=== PATIENT | male | born 1985 | race African-American/Black ===

== ENCOUNTER 2024-07-23 17:18 | Emergency (ER) | payer SELFPAY ==
[~2024-07-23] VITALS: Ht 172.7 cm; Wt 70.0 kg
[2024-07-23 17:21] VITALS: TEMP 98.2; O2SAT 100
[2024-07-23] MEDS ORDERED: BO1 TP (22:08)
[2024-07-23] MEDS: TETANUS, DIPHTHERIA, PERTUSSIS VAC/PF 0.5ML (>10YR OLD) IM ONE (22:30)
[2024-07-23 22:31] VITALS: BP 114/83; PULSE 69; RESP 16; O2SAT 100
[2024-07-23] MEDS: LIDOCAINE HCL/PF 1% 10 MG/ML 5ML VIAL INFIL ONE (22:31)
[2024-07-23] MEDS: BACITRACIN ZINC OINT UDPKT TOP ONE (22:31)
== END 2024-07-23 22:33 | disposition home or self-care (01) ==
LOC: ER 17:18
DX: S61.101A Unspecified open wound of right thumb with damage to nail, initial encounter (principal); X58.XXXA Exposure to other specified factors, initial encounter; Y93.89 Activity, other specified; Y92.89 Other specified places as the place of occurrence of the external cause; Y99.8 Other external cause status
CPT/HCPCS: 99283; Z7610 ×2